=== PATIENT | male | born 1960 | race American Indian/Alaskan Native ===

== ENCOUNTER 2017-10-21 14:25 | Emergency (ER) | payer OTHER ==
[2017-10-21 14:34] VITALS: BP 138/84
--- NOTE | 2017-10-21 16:02 | Emergency Department Report ---
Blank Doc - Documentation Documentation: Patient is a 57-year-old black male who had a syncopal episode 3 days ago. Patient states was sitting in his car tech sting before going into the [employer] and then the next thing he remembers was being an ambulance. Patient's at some point most of fallen while getting out of the car or had a syncopal episode after getting out of the car and fell and struck his right side of his face and right wrist. Patient denied medical care at that time. Patient is complaining of right sided headache swelling to the area just beneath the right eye has subconjunctival hemorrhage as well as right wrist and hand pain. Brief physical exam patient has heart tones are within normal limits lungs are clear to auscultation is moving all extremities spontaneously with no issue. Patient will have a head CT facial CT and x-ray of the wrist performed the patient also has some basic laboratory studies done. Patient believes he may have had a low blood sugar or low blood pressure at the time of the syncopal episode. Patient was recently started on a new blood pressure medicine and thinks this could have contributed to his fall/syncope
[2017-10-21 16:57] LABS: Basophils % (Auto) 0.6 % (0.0-1.8); Eosinophils # (Auto) 0.1 K/mm3 (0.0-0.4); Eosinophils % (Auto) 1.8 % (0.0-4.3); Hematocrit 35.5 % (35.5-45.6); Hemoglobin 12.3 gm/dl (11.8-15.2); Lymphocytes # (Auto) 1.1 K/mm3 (1.2-5.4); Lymphocytes % (Auto) 18.3 % (13.4-35.0); Mean Corpuscular HGB Conc 35 % (32-34); Mean Corpuscular Hemoglobin 37 pg (28-32); Mean Corpuscular Volume 107 fl (84-94); Monocytes # (Auto) 0.5 K/mm3 (0.0-0.8); Monocytes % (Auto) 8.8 % (0.0-7.3); Platelet Count 266 K/mm3 (140-440); Red Blood Count 3.32 M/mm3 (3.65-5.03); Red Cell Distribution Width 13.8 % (13.2-15.2)
[2017-10-21 17:22] LABS: Blood Urea Nitrogen 18 mg/dL (9-20); Calcium 9.9 mg/dL (8.4-10.2); Hemolysis Index 2
[2017-10-21 17:30] LABS: BUN/Creatinine Ratio 14
--- NOTE | 2017-10-21 17:31 | Cat Scan Report ---
FINAL REPORT EXAM: CT HEAD/BRAIN WO CON HISTORY: syncope withfall TECHNIQUE: Standard unenhanced CT of the head at 5.0 millimeter axial increments. PRIORS: None. FINDINGS: The ventricular system is normal in size and configuration. There is no evidence for parenchymal volume loss. There is no evidence for mass lesion, mass effect, midline shift, acute intracranial hemorrhage, or acute ischemia/ infarction. No evidence for acute skull fracture is seen. No abnormality in the overlying scalp soft tissues is seen. Visualized paranasal sinuses are clear. IMPRESSION: Negative CT of the head. No acute intracranial process noted.
--- NOTE | 2017-10-21 17:39 | Cat Scan Report ---
FINAL REPORT EXAM: CT FACIAL BONES WO CON HISTORY: syncope with fall TECHNIQUE: Standard unenhanced CT facial bones at 2.5 mm axial increments with coronal and sagittal reconstruction PRIORS: None. FINDINGS: No evidence for acute bony fracture is noted. The frontal, ethmoid, maxillary, and sphenoid sinuses are clear with no evidence for air-fluid levels or mucosal thickening. Nasal septum is midline. The orbits are intact. The orbital globes are normal. The visualized mastoid air cells are also clear. No overlying soft tissue abnormality is seen. There is an incidental well-defined ovoid fatty lipoma located lateral to the right mandibular ramus (axial image 27). It measures 2.0 x 1.3 cm. IMPRESSION: Negative CT of the facial bones. No evidence for acute fracture.
--- NOTE | 2017-10-21 17:51 | XRay Report ---
FINAL REPORT EXAM: XR WRIST 3+V RT HISTORY: fall injury' TECHNIQUE: 3 views of right wrist. PRIORS: None. FINDINGS: Mild degenerative changes in the radiocarpal joint. No apparent fracture or dislocation. Soft tissues grossly unremarkable. IMPRESSION: 1. No acute osseous abnormality. 2. Degenerative changes.
--- NOTE | 2017-10-21 17:54 | XRay Report ---
FINAL REPORT EXAM: XR HAND 3+V RT HISTORY: fall injury TECHNIQUE: 3 views of right hand. PRIORS: None. FINDINGS: Apparent cortical discontinuity and oblique fracture in the dorsal base of ring finger distal phalanx, with very mild displacement and probable intra-articular extension, seen only on lateral view. No dislocation. Remainder of osseous and soft tissue structures grossly unremarkable. IMPRESSION: 1. Fracture right ring finger distal phalanx.
--- NOTE | 2017-10-21 21:29 | Emergency Department Report ---
ED Fall HPI - General Chief Complaint: Syncope Stated Complaint: RIGHT EYE SWOLLEN/WRIST Time Seen by Provider: 10/21/17 15:46 Source: patient Mode of arrival: Ambulatory - History of Present Illness Initial Comments: Patient is a 57-year-old male who had a syncopal on Saturday 3 days ago. Patient states that he was sitting in his car before going into the [employer] and then the next thing he remembers was being in an ambulance. Patient's at some point most of fallen while getting out of the car or had a syncopal episode after getting out of the car and fell and struck his right side of his face and right wrist. Patient denied medical care at that time. Patient is complaining of right sided headache swelling to the area just beneath the right eye has subconjunctival hemorrhage as well as right wrist and hand pain. MD Complaint: fall -: Sudden, days(s) (3 days ago) Fall From: standing Place Fall Occurred: street - Related Data Allergies Allergy/AdvReac Type Severity Reaction Status Date / Time No Known Allergies Allergy Unverified 10/21/17 14:31 ED Review of Systems ROS: Stated complaint: RIGHT EYE SWOLLEN/WRIST Other details as noted in HPI Comment: All other systems reviewed and negative Constitutional: denies: chills, fever Eyes: eye pain Respiratory: denies: cough, orthopnea Cardiovascular: denies: chest pain, palpitations, dyspnea on exertion Gastrointestinal: denies: abdominal pain, nausea, vomiting, diarrhea Genitourinary: denies: urgency, dysuria, frequency, hematuria, discharge, testicular pain, testicular mass Skin: denies: rash, lesions Neurological: headache. denies: weakness, numbness, paresthesias, confusion, abnormal gait, vertigo ED Past Medical Hx - Past Medical History Hx Hypertension: Yes - Surgical History Additional Surgical History: hernia - Social History Smoking Status: Current Every Day Smoker Substance Use Type: None, Alcohol ED Physical Exam - General Limitations: No Limitations General appearance: alert, in no apparent distress - Head Head exam: Present: atraumatic - Eye Eye exam: Present: other (right eye with subconjunctival hemorrhage) - ENT ENT exam: Present: normal exam, normal orophraynx, mucous membranes moist - Neck Neck exam: Present: normal inspection, full ROM. Absent: tenderness, meningismus, lymphadenopathy, thyromegaly - Respiratory Respiratory exam: Present: normal lung sounds bilaterally. Absent: respiratory distress, wheezes, rales, rhonchi, stridor, chest wall tenderness, accessory muscle use, decreased breath sounds, prolonged expiratory - Cardiovascular Cardiovascular Exam: Present: regular rate, normal rhythm, normal heart sounds - GI/Abdominal GI/Abdominal exam: Present: soft, normal bowel sounds. Absent: distended, tenderness, guarding, rebound, rigid, organomegaly, mass, bruit, pulsatile mass , hernia - Extremities Exam Extremities exam: Present: normal inspection, full ROM, normal capillary refill. Absent: tenderness, pedal edema, calf tenderness - Back Exam Back exam: Present: normal inspection, full ROM. Absent: tenderness, CVA tenderness (R), CVA tenderness (L), muscle spasm, paraspinal tenderness, vertebral tenderness, rash noted - Neurological Exam Neurological exam: Present: alert, oriented X3, CN II-XII intact, normal gait, reflexes normal - Skin Skin exam: Present: warm, intact, normal color ED Course Vital Signs 10/21/17 14:31 Temperature 98.2 F Pulse Rate 103 H Respiratory 18 Rate Blood Pressure 138/84 O2 Sat by Pulse 97 Oximetry - Orthopedic Splinting/Casting Injury #1 Side: right Upper Extremity Injury Location: finger Upper Extremity Immobilizer: finger (other) ED Medical Decision Making - Lab Data Result diagrams: 10/21/17 16:47 10/21/17 16:47 - Radiology Data Radiology results: report reviewed CT head, CT face is unremarkable for acute finding. Right wrist is negative for acute finding. Right hand show right ring finger distal phalanx fracture. Critical care attestation.: If time is entered above; I have spent that time in minutes in the direct care of this critically ill patient, excluding procedure time. ED Disposition Clinical Impression: Syncope, Head injury, Fracture, finger, distal phalanx Disposition: TO HOME OR SELFCARE Is pt being admited?: No Condition: Stable Instructions: Syncope (ED), Minor Head Injury (ED), Black Eye (ED), Finger Fracture (ED) Referrals: MACHO AMARAL MD [Primary Care Provider] - 3-5 Days
== END 2017-10-21 21:50 | disposition home or self-care (01) ==
LOC: ED 14:25
DX: S62.634A Displaced fracture of distal phalanx of right ring finger, initial encounter for closed fracture (principal); S09.90XA Unspecified injury of head, initial encounter; R55 Syncope and collapse; I10 Essential (primary) hypertension; F17.200 Nicotine dependence, unspecified, uncomplicated; V89.9XXA Person injured in unspecified vehicle accident, initial encounter; Y93.89 Activity, other specified; Y99.8 Other external cause status; Y92.414 Local residential or business street as the place of occurrence of the external cause
CPT/HCPCS: 36415; 70450; 70486; 80048; 85025; 93005; 93010